=== PATIENT | male | born 1995 | race African-American/Black ===

== ENCOUNTER 2024-06-15 18:33 | Emergency (ER) | payer OTHER ==
[2024-06-15] MEDS ORDERED: ALPRAZolam 0.5 MG/TAB PO ONE (19:40)
[2024-06-15 20:09] LABS: BASO% 0.4 % (0-3); EOS% 0.6 % (0-8); HEMATOCRIT 45.5 % (39.0-50.0); IMMATURE GRANULOCYTES 0.2 % (0.0-5.0); LYMPH% 14.4 % (15-41); MEAN CELL VOLUME 79.8 fL CALC (80.0-100.0); MEAN CORPUSCULAR HGB 24.6 pG CALC (26.0-32.0); MEAN CORPUSCULAR HGB CONC 30.8 g/dL CAL (32.0-36.0); MONO% 8.7 % (2-13); NEUT# 11.86 thou/uL (1.82-7.42); NEUT% 75.7 % (42-76); RED BLOOD COUNT 5.7 mill/uL (4.70-6.10); RED CELL DISTRI WIDTH 15.1 % (11.5-15.5)
[2024-06-15 20:23] VITALS: BP 128/84
[2024-06-15 20:31] LABS: ALBUMIN 4.6 g/dL (3.2-5.0); ALKALINE PHOSPHATASE 90 u/l (38-126); ANION GAP 13 (6-22 (CALC)); BILIRUBIN, TOTAL 0.6 mg/dL (0.2-1.3); BUN 15 mg/dL (9-20); BUN/CREATININE RATIO 16 (12-20 (CALC)); CARBON DIOXIDE 27 mmol/l (22-30); CHLORIDE 106 mmol/l (95-108); CREATININE 0.9 mg/dL (0.7-1.3); ESTIMATED GFR 120 ML/MIN (>=90 (CALC)); POTASSIUM 4.6 mmol/l (3.5-5.1); SGOT/AST 28 u/l (17-59); SODIUM 141 mmol/l (137-146)
[2024-06-15 20:53] VITALS: BP 118/82
[2024-06-15 21:08] VITALS: BP 118/82
== END 2024-06-15 21:08 | disposition home or self-care (01) | DRG 313 ==
LOC: ED 18:33
PROVIDERS: Nurse Practitioner Family
DX: R07.9 Chest pain, unspecified (principal); F41.9 Anxiety disorder, unspecified; D75.A Glucose-6-phosphate dehydrogenase (G6PD) deficiency without anemia

== ENCOUNTER 2024-07-20 22:35 | Emergency (ER) | payer OTHER ==
[~2024-07-20] VITALS: Ht 180.3 cm; Wt 142.0 kg
[2024-07-20] MEDS ORDERED: LEXAPRO10 MG PO (22:43)
[2024-07-20 22:52] VITALS: BP 145/90
[2024-07-20 23:00] VITALS: BP 156/95
[2024-07-20] MEDS ORDERED: XOPENEX HFA45 MCG IN (23:14)
[2024-07-20 23:16] VITALS: BP 132/83
[2024-07-20 23:31] VITALS: BP 124/66
[2024-07-20 23:39] VITALS: BP 124/66
== END 2024-07-20 23:50 | disposition home or self-care (01) | DRG 880 ==
LOC: ED 22:35
DX: F41.9 Anxiety disorder, unspecified (principal); I10 Essential (primary) hypertension